=== PATIENT | male | born 1990 | race Caucasian/White ===

== ENCOUNTER 2018-08-02 15:18 | Emergency (ER) | payer OTHER ==
[~2018-08-02] VITALS: Ht 188 cm; Wt 83.9 kg
--- NOTE | 2018-08-02 15:20 | NUR ---
PRESENTS TO ER C/O FREQUENCY X 2 WEEKS,DYSURIA TODAY. A/OX 4, BREATHING EVEN AND UNLABORED. NO SOB, NAD, VITALS STABLE. SAFETY AND COMFORT MEASURES IN PLACE. AWAITING MD ORDERS.
[2018-08-02] MEDS ORDERED: KETOROLAC TROMETHAMINE INJ 30 MG/ML VIAL ONE (16:14)
--- NOTE | 2018-08-02 16:15 | NUR ---
NEW IV STARTED ON RAC, 18G. BLOOD DRAWN AND SENT TO LAB.
[2018-08-02] MEDS ORDERED: IV NS 0.9% 1,000 ML BAG IV ONE (16:30)
[2018-08-02] MEDS ORDERED: KETOROLAC TROMETHAMINE INJ 30 MG/ML VIAL IV ONE (16:30)
[2018-08-02 16:32] LABS: BASOPHILS # (AUTO) 0.1 /CMM (0.0-0.2); BASOPHILS % (AUTO) 1.2 % (0.0-2.0); EOSINOPHILS % (AUTO) 1.9 % (0.0-6.0); HEMATOCRIT 46 % (39-51); HEMOGLOBIN 15.2 g/dL (13.5-17.5); LYMPHOCYTES # (AUTO) 2.6 /CMM (0.8-4.8); LYMPHOCYTES % (AUTO) 40.8 % (20.0-44.0); MEAN CORPUSCULAR HGB CONC 34 g/dl (31.0-36.0); MEAN CORPUSCULAR VOLUME 84 fL (80-96); MONOCYTES # (AUTO) 0.5 /CMM (0.1-1.30); MONOCYTES % (AUTO) 8.1 % (2.0-12.0); NEUTROPHILS # (AUTO) 3.1 /CMM (1.8-8.9); PLATELET COUNT (AUTO) 221 /CMM (150-450); RDW COEFFICIENT OF VARIATION 12.4 (11.5-15.0); RED BLOOD CELL COUNT(AUTO) 5.39 MIL/uL (4.5-6.0); WHITE BLOOD COUNT (AUTO) 6.4 K/uL (4.3-11.0)
[2018-08-02 16:40] LABS: APPEARANCE,URINE Clear (CLEAR); BILIRUBIN,URINE Negative (NEGATIVE); BLOOD, URINE Negative Ery/uL (NEGATIVE); COLOR,URINE Yellow (YELLOW); KETONES,URINE Negative (NEGATIVE); LEUKOCYTE ESTERASE ,URINE Negative (NEGATIVE); NITRITE, URINE Negative (NEGATIVE); PROTEIN,URINE Negative (NEGATIVE); UGLUCOSE Negative (NEGATIVE); UROBILINOGEN,URINE 0.2 EU/dL (0.2)
[2018-08-02 16:41] LABS: CALCIUM, SERUM 9.1 mg/dL (8.5-10.1); CREATININE 1.4 mg/dL (0.6-1.3); POTASSIUM 3.5 mmol/L (3.5-5.1)
--- NOTE | 2018-08-02 17:30 | NUR ---
US TECH AT BEDSIDE.
--- NOTE | 2018-08-02 18:13 | NUR ---
KATE HILL AT BEDSIDE, SPEAKING TO PT REGARDING RESULTS
--- NOTE | 2018-08-02 18:20 | NUR ---
Note nata in EDM - 08/02/18 at 1844 by FESTUS PRESENTS TO ER C/O FREQUENCY X 2 WEEKS,DYSURIA TODAY. A/OX 4, BREATHING EVEN AND UNLABORED. NO SOB, NAD, VITALS STABLE. SAFETY AND COMFORT MEASURES IN PLACE. AWAITING MD ORDERS.
--- NOTE | 2018-08-02 18:30 | NUR ---
PATIENT TAKEN TO CT VIA STRETCHER.
[2018-08-02 19:10] VITALS: BP 114/75
--- NOTE | 2018-08-02 19:10 | NUR ---
REPORT RECEIVED FROM VALERIE CHRISTOPHER. CARE OF PT ASSUMED AT THIS TIME. ASSISTANCE OFFERED. TO PT. JULIO PROVIDED. IV FLUSHED
--- NOTE | 2018-08-02 20:05 | NUR ---
DISCHARGE INSTRUCTIONS GIVEN VERBAL AND WRITTEN. ADVISED PT ON FOLLOW UP AND TO RETURN TO ED IF FEELING WORSE NOT BETTER. PT VERBALIZED UNDERSTANDING. ALL QUESTIONS ANSWERED. SKIN PINK WARM AND DRY RESPS EVEN AND NON LABORED NO ACUTE DISTRESS. IV DISCONTINUED CATHETER TIP INTACT BLEEDING CONTROLLED. PT AMBULATED FROM ED STEADY GAIT.
== END 2018-08-02 20:05 | disposition home or self-care (01) ==
LOC: ER 15:22
DX: M54.16 Radiculopathy, lumbar region (principal); N28.9 Disorder of kidney and ureter, unspecified
CPT/HCPCS: 36415; 72131; 76770; 80048; 81001; 83605; 85025; 87040 ×2; 87086; 87491; 87591; 96374; 99285; A4606; J1885; J7030; Z7610; 81000-TC

== ENCOUNTER 2018-08-06 13:42 | Emergency (ER) | payer OTHER ==
[~2018-08-06] VITALS: Ht 188 cm; Wt 83.9 kg
[2018-08-06 14:34] VITALS: BP 110/79
[2018-08-06 15:20] LABS: BASOPHILS # (AUTO) 0.1 /CMM (0.0-0.2); BASOPHILS % (AUTO) 0.9 % (0.0-2.0); EOSINOPHILS % (AUTO) 1.1 % (0.0-6.0); HEMATOCRIT 47 % (39-51); HEMOGLOBIN 15.6 g/dL (13.5-17.5); LYMPHOCYTES % (AUTO) 31.4 % (20.0-44.0); MEAN CORPUSCULAR HGB CONC 33 g/dl (31.0-36.0); MEAN CORPUSCULAR VOLUME 85 fL (80-96); MONOCYTES # (AUTO) 0.5 /CMM (0.1-1.30); MONOCYTES % (AUTO) 7.6 % (2.0-12.0); NEUTROPHILS # (AUTO) 3.8 /CMM (1.8-8.9); PLATELET COUNT (AUTO) 229 /CMM (150-450); RDW COEFFICIENT OF VARIATION 12.1 (11.5-15.0); RED BLOOD CELL COUNT(AUTO) 5.57 MIL/uL (4.5-6.0); WHITE BLOOD COUNT (AUTO) 6.5 K/uL (4.3-11.0)
[2018-08-06 15:28] LABS: CALCIUM, SERUM 9.1 mg/dL (8.5-10.1); CREATININE 1.3 mg/dL (0.6-1.3); POTASSIUM 3.8 mmol/L (3.5-5.1)
== END 2018-08-06 15:53 | disposition home or self-care (01) ==
LOC: ER 13:45
DX: M51.36 Other intervertebral disc degeneration, lumbar region (principal); N28.9 Disorder of kidney and ureter, unspecified; F41.9 Anxiety disorder, unspecified; Z60.2 Problems related to living alone
CPT/HCPCS: 36415; 80048; 85025; 99284; A4606; Z7610

== ENCOUNTER 2020-12-12 06:22 | Emergency (ER) | payer OTHER ==
[~2020-12-12] VITALS: Ht 188 cm; Wt 76.2 kg
--- NOTE | 2020-12-12 07:05 | NUR ---
BLOOD COLLECTED AND SENT TO THE LAB
--- NOTE | 2020-12-12 07:07 | NUR ---
PATIENT CAME TO THE ER BED 4 C/O LEFT SIDED CHEST PAIN WITH PALPITATIONS FOR 1x WEEK. PATIENT STATES THAT HE HAD CALLED THE PRIMARY DOCTOR AND HAS BEEN TAKING PRESCRIBED ATENOLOL 12.5MG FOR THE PAST 2x DAYS. PATIENT IS AAXO4. NO SOB .BREATHING EVENLY AND UNLABORED ON ROOM AIR. CONNECTED TO THE MONITOR.
[2020-12-12 07:17] LABS: BASOPHILS % (AUTO) 0.6 % (0.0-2.0); EOSINOPHILS % (AUTO) 0.7 % (0.0-6.0); HEMATOCRIT 42 % (39-51); HEMOGLOBIN 14.3 g/dL (13.5-17.5); LYMPHOCYTES # (AUTO) 2.9 /CMM (0.8-4.8); LYMPHOCYTES % (AUTO) 43.5 % (20.0-44.0); MEAN CORPUSCULAR HGB CONC 34 g/dl (31.0-36.0); MEAN CORPUSCULAR VOLUME 82 fL (80-96); MONOCYTES # (AUTO) 0.5 /CMM (0.1-1.30); MONOCYTES % (AUTO) 7.1 % (2.0-12.0); NEUTROPHILS # (AUTO) 3.2 /CMM (1.8-8.9); NEUTROPHILS % (AUTO) 48.1 % (43.0-81.0); PLATELET COUNT (AUTO) 217 /CMM (150-450); RED BLOOD CELL COUNT(AUTO) 5.08 MIL/uL (4.5-6.0); WHITE BLOOD COUNT (AUTO) 6.6 K/uL (4.3-11.0)
[2020-12-12 07:31] LABS: CALCIUM, SERUM 9.5 mg/dL (8.5-10.1); CARBON DIOXIDE 26 mmol/L (21-32); CHLORIDE 99 mmol/L (98-107); CREATININE 1.2 mg/dL (0.6-1.3); GLUCOSE 86 mg/dL (74-106); POTASSIUM 3.2 mmol/L (3.5-5.1); SODIUM SERUM 137 mmol/L (136-145); UREA NITROGEN, BLOOD 16 mg/dL (7-18)
--- NOTE | 2020-12-12 07:31 | NUR ---
REPORT GIVEN TO LAW CHRISTOPHER FOR NADIA.
--- NOTE | 2020-12-12 07:35 | NUR ---
PATIENT IN BED. AAO X4. DENIES PAIN. RESPIRATION REGULAR AND UNLABORED. DENIES SOB. THE PATIENT IN NO APPARENT DISTRESS. PATIENT CONECTED TO THE MONITOR.
--- NOTE | 2020-12-12 08:42 | NUR ---
PATIENT A/OX4, BREATHING EVEN AND UNLABORED, NO SOB NOTED. PATIENT DENIES PAIN AT THIS TIME. IV removed. Catheter intact and site benign. Pressure and 4x4 applied to site. No bleeding noted.Patient discharged to home in stable condition. Written and verbal after care instructions given. Patient verbalizes understanding of instruction.
[2020-12-12 08:46] VITALS: BP 115/86
== END 2020-12-12 08:46 | disposition home or self-care (01) ==
LOC: ER 06:24
DX: R00.2 Palpitations (principal); R07.89 Other chest pain; F41.1 Generalized anxiety disorder
CPT/HCPCS: 36415; 71045-TC; 80048-TC; 84484-TC; 85025-TC